=== PATIENT | male | born 1975 | race Two or more races ===

== ENCOUNTER 2017-07-19 06:15 | Observation (INO) | payer MEDICARE ==
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
[2017-07-19] MEDS ORDERED: SODIUM CHLORIDE 0.9% 1000 ML INFUS.BAG IV ONE (06:24)
[2017-07-19 06:27] VITALS: BMI 34.0
[2017-07-19 06:32] LABS: BASOPHIL 1.1 % (0-2.0); EOSINOPHIL 0.6 % (0-4.5); MEAN CELL VOLUME 88.5 fl (80-96); NEUTROPHILS 57.3 % (42.8-82.8); PLATELET COUNT 308 K/MM3 (134-434); WHITE BLOOD COUNT 4.3 K/mm3 (4.0-10.0)
[2017-07-19 06:51] LABS: URINE MARIJUANA THC NEGATIVE ng/ml (CUTOFF=50)
[2017-07-19] MEDS ORDERED: ASPIRIN 81 MG CHEWABLE TABLETS PO ONE (06:58)
[2017-07-19 07:07] LABS: BASOPHIL 0.7 % (0-2.0); EOSINOPHIL 0.7 % (0-4.5); MCH 30.5 pg (25.7-33.7); MCHC 34.5 g/dl (32.0-35.9); MEAN CELL VOLUME 88.5 fl (80-96); MEAN PLT VOLUME 7.9 fl (7.5-11.1); NEUTROPHILS 56.2 % (42.8-82.8); PLATELET COUNT 225 K/MM3 (134-434); RDW 12.6 % (11.9-15.9); WHITE BLOOD COUNT 4.3 K/mm3 (4.0-10.0)
[2017-07-19] MEDS ORDERED: ASPIRIN 325 MG TABLET ONE (07:07)
[2017-07-19 07:19] LABS: INR 0.95 (0.82-1.09); PROTHROMBIN TIME (PATIENT) 10.7 SEC (9.98-11.88)
[2017-07-19 07:22] LABS: ACTIVATED PTT 32.6 SECONDS (26.9-34.4)
[2017-07-19] MEDS ORDERED: SODIUM CHLORIDE 0.9% 500 ML INFUS.BAG IV ONE (07:31)
[2017-07-19 07:54] LABS: ALBUMIN 3.8 g/dl (3.4-5.0); ANION GAP 9 (8-16); BILIRUBIN,TOTAL 0.4 mg/dL (0.2-1.0); CALCIUM 8.4 mg/dL (8.5-10.1); CO2 25 mmol/L (21-32); CREATININE 0.7 mg/dL (0.7-1.3); GLUCOSE,RANDOM 155 mg/dL (74-106); SGOT/AST 58 U/L (15-37); SGPT/ALT 96 U/L (12-78); TOT PROT 7.5 g/dl (6.4-8.2)
[2017-07-19 07:57] LABS: ALK PHOS 97 U/L (45-117); CPK 125 IU/L (39-308); TROPONIN I < 0.02 ng/ml (0.00-0.05)
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
--- NOTE | 2017-07-19 10:36 | PDOC ---
*Physical Exam - Vital Signs Last Vital Signs Temp Pulse Resp BP Pulse Ox 91 H 14 166/119 99 07/19/17 06:22 07/19/17 06:22 07/19/17 06:22 07/19/17 06:22 ED Treatment Course - LABORATORY CBC & Chemistry Diagram: 07/19/17 06:48 07/19/17 06:48 - ADDITIONAL ORDERS Additional order review: Laboratory Results 07/19/17 07/19/17 07/19/17 07:07 06:48 06:48 PT with INR INR PTT (Actin FS) D-Dimer < 200 Sodium 140 Potassium 3.8 Chloride 106 Carbon Dioxide 25 Anion Gap 9 BUN 9 Creatinine 0.7 Creat Clearance w eGFR > 60 Random Glucose 155 H Lactic Acid Calcium 8.4 L Magnesium Total Bilirubin 0.4 AST 58 H ALT 96 H Alkaline Phosphatase 97 Creatine Kinase 125 Troponin I < 0.02 B-Natriuretic Peptide 5.21 Total Protein 7.5 Albumin 3.8 Lipase Opiates Screen Methadone Screen Barbiturate Screen Phencyclidine Screen Ur Amphetamines Screen MDMA (Ecstasy) Screen Benzodiazepines Screen Cocaine Screen U Marijuana (THC) Screen Alcohol, Quantitative 107.4 H* 07/19/17 07/19/17 07/19/17 06:48 06:27 06:27 PT with INR 10.70 INR 0.95 PTT (Actin FS) 32.6 D-Dimer Sodium Potassium Chloride Carbon Dioxide Anion Gap BUN Creatinine Creat Clearance w eGFR Random Glucose Lactic Acid Calcium Magnesium Total Bilirubin AST ALT Alkaline Phosphatase Creatine Kinase Troponin I B-Natriuretic Peptide Total Protein Albumin Lipase Opiates Screen Negative Methadone Screen Negative Barbiturate Screen Negative Phencyclidine Screen Negative Ur Amphetamines Screen Negative MDMA (Ecstasy) Screen Negative Benzodiazepines Screen Negative Cocaine Screen Positive U Marijuana (THC) Screen Negative Alcohol, Quantitative Cancelled 07/19/17 07/19/17 07/19/17 06:27 06:27 06:27 PT with INR Cancelled INR Cancelled PTT (Actin FS) Cancelled D-Dimer Sodium Cancelled Potassium Cancelled Chloride Cancelled Carbon Dioxide Cancelled Anion Gap Cancelled BUN Cancelled Creatinine Cancelled Creat Clearance w eGFR Cancelled Random Glucose Cancelled Lactic Acid 2.2 H* Calcium Cancelled Magnesium Cancelled Total Bilirubin Cancelled AST Cancelled ALT Cancelled Alkaline Phosphatase Cancelled Creatine Kinase Cancelled Troponin I Cancelled B-Natriuretic Peptide Total Protein Cancelled Albumin Cancelled Lipase Cancelled Opiates Screen Methadone Screen Barbiturate Screen Phencyclidine Screen Ur Amphetamines Screen MDMA (Ecstasy) Screen Benzodiazepines Screen Cocaine Screen U Marijuana (THC) Screen Alcohol, Quantitative 07/19/17 06:25 PT with INR INR PTT (Actin FS) D-Dimer Sodium Potassium Chloride Carbon Dioxide Anion Gap BUN Creatinine Creat Clearance w eGFR Random Glucose Lactic Acid Calcium Magnesium Total Bilirubin AST ALT Alkaline Phosphatase Creatine Kinase Troponin I B-Natriuretic Peptide Cancelled Total Protein Albumin Lipase Opiates Screen Methadone Screen Barbiturate Screen Phencyclidine Screen Ur Amphetamines Screen MDMA (Ecstasy) Screen Benzodiazepines Screen Cocaine Screen U Marijuana (THC) Screen Alcohol, Quantitative 07/19/17 07/19/17 06:48 06:27 RBC 5.22 5.24 MCV 88.5 88.5 MCHC 34.5 35.0 RDW 12.6 13.0 MPV 7.9 D 9.0 Neutrophils % 56.2 57.3 Lymphocytes % 33.8 33.8 Monocytes % 8.6 7.2 Eosinophils % 0.7 0.6 Basophils % 0.7 1.1 - RADIOLOGY Radiology Studies Ordered: Category Date Time Status CHEST PA & LAT [RAD] Stat Radiology 07/19/17 08:22 Completed - Medications Given in the ED: ED Medications Discontinued Medications Generic Name Dose Route Start Last Admin Trade Name Nakulq PRN Reason Stop Dose Admin Aspirin 324 mg 07/19/17 06:58 07/19/17 07:09 Asa - PO 07/19/17 06:59 324 mg ONCE ONE Administration Sodium Chloride 1,000 ml 07/19/17 06:24 07/19/17 06:39 Normal Saline - IV 07/19/17 06:25 1,000 ml ONCE ONE Administration Sodium Chloride 1,000 ml 07/19/17 07:31 07/19/17 07:45 Normal Saline - IV 07/19/17 07:32 1,000 ml ONCE ONE Administration Medical Decision Making - Medical Decision Making 07/19/17 10:32 Patient signed out to me by overnight attending, pending labs. Troponin and dimer negative. Patient is admitted to Dr. Fountain for telemetry observation and ACS w/u. Case discussed in detail with admitting physician including history, physical exam and ancillary studies. Admitting physician has assumed care for the patient, will follow all pending diagnostics and will complete the evaluation and treatment. *DC/Admit/Observation/Transfer Diagnosis at time of Disposition: Chest pain, Alcohol use disorder, Cocaine use - Discharge Dispostion Condition at time of disposition: Stable Admit: Yes - Referrals - Patient Instructions - Post Discharge Activity - Attestations Physician Attestion: 07/19/17 10:37 I, Dr. Rao Beauchamp MD, attest that this document has been prepared under my direction and personally reviewed by me in its entirety. I further attest, that it accurately reflects all work, treatment, procedures and medical decision -making performed by me.
--- NOTE | 2017-07-19 11:09 | EKG ---
Test Reason : Blood Pressure : / mmHG Vent. Rate : 089 BPM Atrial Rate : 089 BPM P-R Int : 150 ms QRS Dur : 096 ms QT Int : 360 ms P-R-T Axes : 037 061 018 degrees QTc Int : 438 ms NORMAL SINUS RHYTHM NORMAL ECG NO PREVIOUS ECGS AVAILABLE Confirmed by ORLANDO OLEARY MD ([id number]) on 07/19/2017 11:09:01 AM Referred By: Confirmed By:ORLANDO OLEARY MD
[2017-07-19] MEDS ORDERED: ONDANSETRON 8 MG TABLET (FP) PO PRN (12:27)
[2017-07-19] MEDS: SODIUM CHLORIDE 1,000 ML IV SCH ×2 (12:36→23:31)
[2017-07-19 13:11] LABS: THYROID STIMULATING HORMONE 1.06 uIU/ml (0.358-3.74)
[2017-07-19] MEDS ORDERED: morphine SULFATE 4 MG/ML VIAL IVPUSH PRN (13:12)
[2017-07-19] MEDS: MULTIVITAMINS (DAILY MVI) TABLET (FP) PO SCH (14:04)
[2017-07-19] MEDS: FOLIC ACID 1 MG TABLET (FP) PO SCH (14:04)
[2017-07-19] MEDS: PANTOPRAZOLE SODIUM 40 MG VIAL IVPUSH SCH (14:04)
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
[2017-07-19] MEDS ORDERED: LORazepam 2 MG/ML SDV VIAL IVPUSH PRN (16:18)
[2017-07-19] MEDS ORDERED: dilTIAZem HCL 60 MG TABLET (FP) PO SCH (17:00)
--- NOTE | 2017-07-19 18:19 | PN ---
Problem List - Problems (1) Hypertension Code(s): I10 - ESSENTIAL (PRIMARY) HYPERTENSION Qualifiers: Hypertension type: essential hypertension Qualified Code(s): I10 - Essential (primary) hypertension (2) Alcohol use disorder Code(s): F10.99 - ALCOHOL USE, UNSP WITH UNSPECIFIED ALCOHOL-INDUCED DISORDER (3) Chest pain Code(s): R07.9 - CHEST PAIN, UNSPECIFIED Qualifiers: Chest pain type: unspecified Qualified Code(s): R07.9 - Chest pain, unspecified (4) Cocaine use Code(s): F14.10 - COCAINE ABUSE, UNCOMPLICATED
[2017-07-19] MEDS ORDERED: ATORVASTATIN CA 10 MG TABLET (FP) PO SCH (22:00)
[2017-07-20] MEDS ORDERED: ONDANSETRON 4 MG TABLET PO PRN (05:55)
[2017-07-20 07:42] LABS: BASOPHIL 0.6 % (0-2.0); EOSINOPHIL 4.5 % (0-4.5); MCH 30.4 pg (25.7-33.7); MCHC 33.6 g/dl (32.0-35.9); MEAN CELL VOLUME 90.4 fl (80-96); MEAN PLT VOLUME 8.4 fl (7.5-11.1); NEUTROPHILS 49.3 % (42.8-82.8); PLATELET COUNT 205 K/MM3 (134-434); RDW 12.8 % (11.9-15.9); WHITE BLOOD COUNT 6.6 K/mm3 (4.0-10.0)
[2017-07-20 08:40] LABS: ALBUMIN 3.3 g/dl (3.4-5.0); CALCIUM 7.9 mg/dL (8.5-10.1); GLUCOSE,RANDOM 107 mg/dL (74-106); MAGNESIUM 2.1 mg/dL (1.8-2.4)
[2017-07-20 08:47] LABS: ALK PHOS 66 U/L (45-117); ANION GAP 10 (8-16); BILIRUBIN,TOTAL 0.8 mg/dL (0.2-1.0); CO2 23 mmol/L (21-32); CPK 71 IU/L (39-308); CREATININE 0.7 mg/dL (0.7-1.3); SGOT/AST 32 U/L (15-37); SGPT/ALT 70 U/L (12-78); TOT PROT 6.1 g/dl (6.4-8.2); TROPONIN I < 0.02 ng/ml (0.00-0.05)
[2017-07-20] MEDS: MULTIVITAMINS (DAILY MVI) TABLET (FP) PO SCH (09:05)
[2017-07-20] MEDS: PANTOPRAZOLE SODIUM 40 MG VIAL IVPUSH SCH (09:05)
[2017-07-20] MEDS: FOLIC ACID 1 MG TABLET (FP) PO SCH (09:05)
[2017-07-20 09:41] VITALS: BP 132/75; PULSE 62; TEMP 98
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
[2017-07-20] MEDS ORDERED: ASPIRIN COATED 81 MG TABLET.EC PO SCH (10:00)
--- NOTE | 2017-07-20 10:59 | PN ---
Progress Note (short form) - Note Progress Note: Chief Complaint: Events noted, notes reviewed, denies any further chest pain, denies any dyspnea History of Present Illness: Seen and examined on telemetry. Events noted, notes reviewed, denies any further chest pain, denies any dyspnea Tolerating therapy, echocardiography revealed normal LV size and function with mild MR and TR Medications: Current Medications Aspirin (Ecotrin -) 81 mg PO DAILY [facility] Last Admin: 07/20/17 09:05 Dose: 81 mg Atorvastatin Calcium (Lipitor -) 10 mg PO HS [facility] Last Admin: 07/19/17 20:59 Dose: 10 mg Diltiazem HCl (Cardizem Cd -) 120 mg PO DAILY [facility] Last Admin: 07/20/17 09:05 Dose: 120 mg Folic Acid (Folic Acid -) 1 mg PO DAILY [facility] Last Admin: 07/20/17 09:05 Dose: 1 mg Sodium Chloride (Normal Saline -) 1,000 mls @ 100 mls/hr IV ASDIR [facility] Last Admin: 07/19/17 23:31 Dose: 100 mls/hr Lorazepam (Ativan Injection -) 1 mg IVPUSH Q6H PRN PRN Reason: ANXIETY Morphine Sulfate (Morphine Sulfate) 2 mg IVPUSH Q4H PRN PRN Reason: PAIN Last Admin: 07/19/17 14:04 Dose: 2 mg Multivitamins/Minerals/Vitamin C (Tab-A-Vit -) 1 tab PO DAILY [facility] Last Admin: 07/20/17 09:05 Dose: 1 tab Ondansetron HCl (Zofran -) 8 mg PO Q8H PRN PRN Reason: NAUSEA Pantoprazole Sodium (Protonix Iv) 40 mg IVPUSH DAILY [facility] Last Admin: 07/20/17 09:05 Dose: 40 mg Review of Systems Constitutional: denies Chills or Fever Respiratory: denies Cough or Sputum Production Cardiovascular: As noted above Gastrointestinal: denies Nausea, Vomiting, Diarrhea, Constipation or Abdominal Pain Genitourinary: No Symptoms Reported Musculoskeletal: No Symptoms Reported Vital Signs: Last Vital Signs Temp Pulse Resp BP Pulse Ox 98 F 62 18 132/75 98 07/20/17 08:00 07/20/17 08:00 07/20/17 08:00 07/20/17 08:00 07/20/17 09:00 Intake & Output 1107/18/17 07/19/17 07/20/17 23:59 23:59 23:59 23:59 Intake Total 120 1000 Balance 120 1000 Weight 180 lb Constitutional: No Distress, Calm Neck: Supple Negative JVD Respiratory: Clear to A&P Bilaterally Cardiovascular: S1 S2 Regular Rate and Rhythm No Murmurs Gastrointestinal: Soft Benign Normal Bowel Sounds Ext: No Edema Labs: Troponin, BNP 07/19/17 07/19/17 07/20/17 12:20 18:30 06:00 Troponin I < 0.02 < 0.02 < 0.02 CBC, BMP 07/20/17 06:00 07/20/17 06:00 Assessment/Plan ASSESSMENT: 1. Syncopal episode in context of ETOH abuse 2. Chest pain syndrome 3. Cocaine abuse 4. Hypertension with noncompliance to therapy administration PLAN: 1. Continue Cardizem CD 2. Continue Lipitor 3. Continue ASA 4. Cocaine and ETOH abstinence was counselled 5. D/C home from tthe cardiovascular point of view Shelli Marinelli M.D.
--- NOTE | 2017-07-20 14:59 | EKG ---
Test Reason : Blood Pressure : / mmHG Vent. Rate : 064 BPM Atrial Rate : 064 BPM P-R Int : 174 ms QRS Dur : 108 ms QT Int : 416 ms P-R-T Axes : 006 069 025 degrees QTc Int : 429 ms NORMAL SINUS RHYTHM NORMAL ECG WHEN COMPARED WITH ECG OF 19-JUL-2017 06:23, NO SIGNIFICANT CHANGE WAS FOUND Confirmed by BRAD PEÑA MD ([id number]) on 07/20/2017 2:58:58 PM Referred By: Jeanette OSULLIVAN Confirmed By:BRAD PEÑA MD
== END 2017-07-20 11:29 | disposition home or self-care (01) ==
LOC: JER 06:15 → JERBED 10:37 → J4W 13:16
PROVIDERS: ADMIT Hospitalist; ATTEND Nurse Practitioner Acute Care
PROC: 3E033GC Introduction of Other Therapeutic Substance into Peripheral Vein, Percutaneous Approach (ICD-10-PCS; principal; 2017-07-19)
PROC: 3E0337Z Introduction of Electrolytic and Water Balance Substance into Peripheral Vein, Percutaneous Approach (ICD-10-PCS; 2017-07-19)
PROC: 3E033NZ Introduction of Analgesics, Hypnotics, Sedatives into Peripheral Vein, Percutaneous Approach (ICD-10-PCS; 2017-07-19)
DX: R55 Syncope and collapse (principal); R07.9 Chest pain, unspecified; I10 Essential (primary) hypertension; F10.10 Alcohol abuse, uncomplicated; F12.10 Cannabis abuse, uncomplicated; Z91.14 Patient's other noncompliance with medication regimen; E78.5 Hyperlipidemia, unspecified
CPT/HCPCS: 36415; 71010-TC; 71020-TC; 80053; 80061; 80307; 82550; 83036; 83605; 83721; 83735; 83880; 84100; 84443; 84484; 85025; 85379; 85610; 85730; 93005; 93010; 99282-25; G0378

== ENCOUNTER 2017-10-06 06:50 | Emergency (ER) | payer SELFPAY ==
--- NOTE | 2017-10-06 06:58 | PDOC ---
History of Present Illness - General Chief Complaint: Pain, Acute Stated Complaint: FEVER/POST SURGERY Time Seen by Provider: 10/06/17 06:57 Past History - Past Medical History Allergies/Adverse Reactions: Allergies Allergy/AdvReac Type Severity Reaction Status Date / Time No Known Allergies Allergy Verified 07/19/17 06:22 Home Medications: Ambulatory Orders Atorvastatin Ca [Lipitor] 10 mg PO HS #30 tablet 07/20/17 Diltiazem Cd [Cardizem Cd -] 120 mg PO DAILY #30 cap.cd.24h 07/20/17 HTN: Yes (stopped meds) - Immunization History Immunization Up to Date: Yes - Suicide/Smoking/Psychosocial Hx Smoking History: Never smoked Have you smoked in the past 12 months: No Hx Alcohol Use: Yes (weekends) Drug/Substance Use Hx: No Substance Use Type: None Hx Substance Use Treatment: No
[2017-10-06 06:59] VITALS: BMI 34.0
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
[2017-10-06 11:09] VITALS: BP 145/79; PULSE 81; TEMP 98.1
== END 2017-10-06 11:09 | disposition home or self-care (01) ==
LOC: JER 06:50
DX: T81.89XA Other complications of procedures, not elsewhere classified, initial encounter (principal); R60.0 Localized edema; K59.03 Drug induced constipation; T40.2X5A Adverse effect of other opioids, initial encounter; Y92.038 Other place in apartment as the place of occurrence of the external cause
CPT/HCPCS: 73562-TC-LT; 93971-TC; 99283-25